=== PATIENT | female | born 1965 | race Hispanic/Latino ===

== ENCOUNTER 2021-04-22 12:27 | Emergency (ER) | payer OTHER ==
[~2021-04-22] VITALS: Ht 170.2 cm; Wt 73.9 kg
[2021-04-22] MEDS ORDERED: METF500T13 PO (12:52)
[2021-04-22] MEDS ORDERED: ATOR40TA75 PO (12:52)
[2021-04-22] MEDS ORDERED: TRUL0.5I SC ×2 (12:52→15:07)
[2021-04-22] MEDS ORDERED: PIOG1TAB36 PO (12:52)
[2021-04-22] MEDS ORDERED: PARO5TAB PO (12:52)
[2021-04-22] MEDS ORDERED: FAMO40TA3 PO (12:52)
[2021-04-22 13:27] LABS: BASO % 0.4 % (0.0-1.0); EOS % 0.3 % (0.0-3.0); HEMATOCRIT 38.3 % (36.0-47.0); HEMOGLOBIN 12.8 g/dl (12.0-15.5); LYMPH # 1.9 10^3/uL (1.5-5.0); LYMPH % 26.6 % (24.0-44.0); MEAN CORPUSCULAR HGB CONC 33.4 g/dl (32.0-36.5); MEAN CORPUSCULAR VOLUME 89.7 fl (80.0-96.0); MONO # 0.4 10^3/uL (0.0-0.8); MONO % 4.8 % (2.0-8.0); NEUTROPHILS # 4.9 10^3/uL (1.5-8.5); NEUTROPHILS % 67.6 % (36.0-66.0); PLATELET COUNT, AUTOMATED 211 10^3/uL (150-450); RED BLOOD COUNT 4.27 10^6/uL (4.00-5.40); WHITE BLOOD COUNT 7.3 10^3/uL (4.0-10.0)
[2021-04-22 13:42] LABS: VENOUS BASE EXCESS 2.4 (-2.0-2.0); VENOUS HCO3 26.1 MEQ/L (23.0-27.0); VENOUS O2 SATURATION 97.3 % (60.0-80.0); VENOUS PARTIAL PRESSURE CO2 37.6 mmHg (38.0-50.0); VENOUS PARTIAL PRESSURE O2 90.9 mmHg (30.0-50.0); VENOUS STANDARD HCO3 26.6 MEQ/L; VENOUS TOTAL CO2 27.3 MEQ/L (24.0-28.0)
[2021-04-22] MEDS ORDERED: ADENOSINE 6MG/2ML INJECTION (J0153) IV STA (13:44)
[2021-04-22] MEDS ORDERED: NS 1,000 ML IV ONE (13:45)
[2021-04-22] MEDS ORDERED: HumuLIN R (REGULAR) INSULIN (NovoLIN R) **100U/ML** PER UNIT IV ONE (13:45)
[2021-04-22 13:46] LABS: ACETONE/KETONE 2.46 MG/DL (<2.81); ALBUMIN 3.9 GM/DL (3.2-5.2); BILIRUBIN,DIRECT 0.1 MG/DL (0.0-0.2); BILIRUBIN,TOTAL 0.4 MG/DL (0.2-1.0); TOTAL PROTEIN 6.8 GM/DL (6.4-8.2)
--- NOTE | 2021-04-22 14:00 | REP ---
INDICATION: palpitations. COMPARISON: None. TECHNIQUE: Portable FINDINGS: The technique utilized in obtaining the radiograph has magnified the cardiac silhouette and attenuated the interstitial markings. Cardiomediastinal silhouette is within normal limits. The heart is not enlarged. Lung warren are clear. The pleural angles are sharp. The osseous structures are within normal limits. IMPRESSION: No acute cardiopulmonary disease <Electronically signed by Naveed Mead > 04/22/21 [id number]
[2021-04-22 14:02] LABS: HEMOGLOBIN A1c 7.3 %
[2021-04-22 15:45] VITALS: BP 108/66
--- NOTE | 2021-04-22 21:33 | ECGEPIP ---
[facility] - ED Test Date: 2021-04-22 Pat Name: SHANAE WHITTINGTON Department: Room: - Gender: Female Migrant Leader: : 1965 Requested By: MILAGROS WELLER Order Number: [id number] Reading MD: Maria De Jesus Saha Measurements Intervals [place] Rate: 156 P: NC: QRS: 21 QRSD: 68 T: 44 QT: 294 QTc: 473 Interpretive Statements Supraventricular tachycardia Nonspecific ST and T wave abnormality No prior Electronically Signed on 04-22-2021 21:33:39 EDT by Maria De Jesus Saha
--- NOTE | 2021-04-22 21:38 | ECGEPIP ---
[facility] - ED Test Date: 2021-04-22 Pat Name: SHANAE WHITTINGTON Department: Room: - Gender: Female Environmental Compliance Specialist: MARIANNE : 1965 Requested By: MILAGROS WELLER Order Number: [id number] Reading MD: Maria De Jesus Saha Measurements Intervals [place] Rate: 82 P: 56 [place]: 146 QRS: 12 QRSD: 82 T: 17 QT: 368 QTc: 429 Interpretive Statements Normal sinus rhythm rhythm/rate change 04/22/21 12:46 Electronically Signed on 04-22-2021 21:38:33 EDT by Maria De Jesus Saha
== END 2021-04-22 16:12 | disposition home or self-care (01) ==
LOC: M ED 12:27
DX: I47.9 Paroxysmal tachycardia, unspecified (principal); E11.65 Type 2 diabetes mellitus with hyperglycemia; R00.0 Tachycardia, unspecified
CPT/HCPCS: 71045; 80047; 80076; 82010; 82803; 83036; 83690; 83930; 85025; 93005; 93041; 96361; 96374; 99285; J0153